=== PATIENT | male | born 1945 | race Caucasian/White ===

== ENCOUNTER 2016-08-16 10:15 | Inpatient (IN) | payer MEDICARE, OTHER ==
[~2016-08-16] VITALS: Ht 162.6 cm; Wt 108.8 kg
[2016-08-16] VITALS (9 sets, daily range): BP systolic 124–164; BP diastolic 63–96; PULSE 55–80; RESP 10–18; O2SAT 96–100
[~2016-08-16 10:15] MED LIST: ASCO-294 PO; ASPI325T32 PO; CHOL5000 PO; CLOB15CR2 TP; COQ 10; CREST10T PO; FISH1CAP15 PO; IRBE300T18 PO; LEVO200T6 PO; Lactated Ringer's 1,000 ML IV ONE; MULT-1018 PO; NITR0.4T SL; OMEP40CA36 PO; TELM80TA5 PO; Vancomycin Inj 1,500 MG in 0.9% Sodium Chloride 500 ML IV ONE; [UNRECOGNIZED DRUG - CODE] TP; fiber caps
[2016-08-16] MEDS ORDERED: Bupivacaine-MPF 0.25%/EPI 30 mL Inj INJ ONE (13:43)
[2016-08-16] MEDS: CeFAZolin Inj 2 GM in IV Premix 1 EACH IV SCH ×2 (13:50→17:15)
[2016-08-16] MEDS ORDERED: Lactated Ringer's 500 ML IV PRN (14:24)
[2016-08-16] MEDS ORDERED: Lactated Ringer's 1,000 ML IV SCH ×2 (14:24→17:25)
[2016-08-16] MEDS ORDERED: EPHEDrine Sulfate 50 mg/mL Inj IVPUSH PRN (14:25)
[2016-08-16] MEDS ORDERED: Atropine 0.4 mg/mL Inj IVPUSH PRN (14:25)
[2016-08-16] MEDS ORDERED: Phenylephrine 10,000 mCg/mL Inj IVPUSH PRN (14:25)
[2016-08-16] MEDS ORDERED: Ondansetron 2 mg/mL 2 mL Inj IVPUSH PRN (14:25)
[2016-08-16] MEDS ORDERED: MetoCLOpramide 5 mg/mL 2 mL Inj IVPUSH PRN (14:25)
[2016-08-16] MEDS ORDERED: Labetalol 5 mg/mL 4 mL Inj IV PRN (14:25)
--- NOTE | 2016-08-16 14:25 | PCM.HPANE ---
Patient Data Surgeon Admitting Provider: Attending Provider:David Perry MD Primary Care Physician:Joao Gardner MD Other Provider:[facility] Reason for Visit Right Hip Arthritis RIGHT HIP ARTHRITIS Ht/WT & BMI Height (Feet): 5 Height (Inches): 5 Weight (Kilograms): 109.95 Body Mass Index 40.00 Allergies Coded Allergies: camphor (Verified Allergy, Intermediate, hives, 08/16/16) menthol (Verified Allergy, Intermediate, hives, 08/16/16) methyl salicylate (Verified Allergy, Intermediate, hives, 08/16/16) naproxen (Verified Allergy, Intermediate, hives, 08/16/16) adhesive tape (Verified Allergy, Mild, red skin, 04/14/16) Past Anesthesia History Anesthesia History: Positive for:: Anesthesia Reactions (pt needed rescue anes with nasal airway during endoscopy here), Denies:: Malignant Hyperthermia Diabetes History Hx Diabetes?: No MRSA MRSA: No Medications Blood Thinner: Aspirin Hypertension Medication: Yes Home Meds Incl Beta Mohan: No Reported Medications Nitroglycerin SL (Nitrostat)0.4 Mg Tab.subl0.4 Mg SL Q5MIN PRN For Chest Pain # 1 BOTTLE 08/11/16 Cholecalciferol (Vitamin D3) (Vitamin D3)5,000 Unit Capsule5,000 Unit PO Q2DAY 08/11/16 Ascorbate Calcium (Vitamin C)500 Mg Adgsfb584 Mg PO DAILY 08/11/16 Omeprazole 40 Mg Capsule.dr40 Mg PO BID Ref 0 08/11/16 Multivitamin (Multi Vitamin Daily)1 Each Tablet1 Each PO DAILY 30 Days Ref 0 08/11/16 Levothyroxine 200 Mcg Rstnws187 Mcg PO DAILY Ref 0 08/11/16 Irbesartan 300 Mg Amgoua167 Mg PO DAILY 08/11/16 Fish Oil/Dha/Epa (Fish Oil 1,200 mg Fish Oil)1 Each Capsule1 Each PO TID 08/11/16 [fiber caps] 0.52gm No Conflict Check2 Capsule DAILY 08/11/16 Emollient Combination No.32 (Epiceram)90 Gm Eml.ext.rl90 Gm TP PRN skin irritation 08/11/16 [Coq 10] No Conflict Blwmt290 Mg BID 08/11/16 Clobetasol Propionate 15 Gm Cream..g.15 Gm TP PRN skin irritation 08/11/16 Aspirin 325 Mg Uazvya886 Mg PO DAILY #1 BOTTLE 08/11/16 Discontinued Reported Medications Telmisartan 80 Mg Qvvafj07 Mg PO DAILY 08/11/16 Rosuvastatin Calcium (Crestor)10 Mg Khbazj11 Mg PO DAILY 30 Days Ref 0 08/11/16 Telmisartan (Micardis)80 Mg Avwklg97 Mg PO DAILY 04/14/16 Rosuvastatin Calcium 10 Mg Yuvthq63 Mg PO DAILY 04/14/16 Omeprazole 40 Mg Capsule.dr40 Mg PO BID Ref 0 04/14/16 [place]-3 Fatty Acids/Fish Oil ([place] 3 1,000 mg Softgel)1 Each Capsule1 Each PO DAILY 04/14/16 Nitroglycerin SL 0.4 Mg Tab.subl0.4 Mg SL 04/14/16 Multivitamin (Multi Vitamin Daily)1 Each Tablet1 Each PO DAILY 30 Days Ref 0 04/14/16 Methylcellulose 1500CPS (Methylcellulose)2,500 Gm Powder2,500 Gm MC DAILY 04/14/16 Levothyroxine 200 Mcg Hdqerm246 Mcg PO DAILY Ref 0 04/14/16 Irbesartan 150 Mg Hpykjr421 Mg PO HS 04/14/16 Ubidecarenone (Coenzyme Q-10)50 Mg Ghhtysk279 Mg PO BID 04/14/16 Aspirin 325 Mg Ghtbtl405 Mg PO DAILY #1 BOTTLE 04/14/16 Ascorbate Calcium (Vitamin C)500 Mg Qlttaz926 Mg PO DAILY 04/14/16 History History of ENT Problems?: No HEENT History: Positive for:: Hearing Problem Denture Type: None Teeth Condition: Within Normal Limits Missing Teeth (implants) Hx of Heart Problems?: Yes Cardiovascular History: Positive for:: Cardiac Surgery (past hx of cardiac cath with stent placments 1996) Hypertension Denies:: Valvular Heart Disease (ef on stress test 71% 2014) Hx of Respiratory Problem?: Yes Respiratory History: Positive for:: Use of C-PAP Machine Denies:: Asthma COPD Emphysema Oxygen Administration Use of Inhalers / NEBS Hx Neurologic Problems?: No Neurological History: Denies:: CVA Multiple Sclerosis Parkinson's Disease Seizures Hx of GI Problems?: No Hx of Problems?: No Hx Musculoskeletal Problems?: Yes Musculoskeletal History: Positive for:: Musculoskeletal Trauma (right hip current admission problem) Denies:: Joint Replacement Psycho Social History: Denies:: Anxiety Hx Depression Hx Surgeries?: Yes (rotator cuff repair) Hx Any Other Health Problems?: Yes Other History: Denies:: Cancer Thyroid Disease Hx Diabetes: No Hx Alcohol Use: YesHx Substance Use: No Smoking Status: Never Smoker Have You Smoked inLast 12 mo: No Stop/Bang S-Snoring: Do You Snore Loudly: No T-Tired: feel tired, fatigued: No O-Obsered: Observed not breath: No P-Blood Pressure: treated: Yes B- Body Mass Index > 35 kg/m2: Yes A- Age over 50: Yes N- Neck Large Circumference: Yes G- Gender Male: Yes JESSE Total Score: 5 Risk Assessment Category Category 1A: Patient has history of documented sleep apnea, and HAS NOT received any narcotic, sedative or anesthesia administration during this stay. Category 1B: Patient has history of documented sleep apnea, and HAS received any narcotic , sedative or anesthesia administration during this stay Category 2: Patient has SUSPECTED Obstructive Sleep Apnea, and HAS received any narcotic , sedative or anesthesia administration during this stay. Category 3: Patient has SUSPECTED Obstructive Sleep Apnea and HAS NOT received narcotic, sedative or anesthesia administration during this stay. Category 4: Outpatient in Procedural Areas with known sleep apnea or who screen positive for High Risk via the STOP/BANG questionnaire. Exam Exam Vital Signs Vital Signs Date Time Temp Pulse Resp B/P Pulse Ox O2 Delivery O2 Flow Rate FiO2 08/16/16 10:42 36.3 55 16 152/81 97 General Appearance: Alert, Oriented X3, Cooperative, No Acute Distress HEENT/AIRWAY: MP 3, Neck Movement (FROM, large neck circumference), Mouth Opening (2 FBMO) Lungs: Clear to Auscultation, Normal Air Movement Heart: Exam Unremarkable, Regular Rate/Rhythm, No Murmurs/Rubs/Gallops Meds/Labs/Diagnostics Admission Meds Current Medications Lactated Ringer's (Lr) 1,000 ml @ 120 mls/hr Q8H20M ONCE IV Last administered on 08/16/16t 10:47; Start 08/16/16 at 05:00; Stop 08/16/16 at 13:19 Plan Impression Patient chart reviewed, patient interviewed and anesthestic plan with risks, benefits, and alternatives discussed, and informed consent obtained. NPO per Anesth. Guidelines: Yes ASA Physical Status: ASA3 Severe Disease (BMI 41) Anesthetic Plan: GA, SAB (Will attempt SAB, if unsuccessful then I will perform a GETA with glidescope) Bene/Risks/Altern/Consents: Yes HP Complete Prior to Induction: Yes Keenan Bergeron MD August 16, 2016 11:11
--- NOTE | 2016-08-16 16:21 | PCM.ANEP1 ---
Post Anesthesia Phase 1 PACU Phase 1 Assessment Vital Signs Vital Signs Date Time Temp Pulse Resp B/P Pulse Ox O2 Delivery O2 Flow Rate FiO2 08/16/16 16:13 36.9 67 12 158/71 100 Simple Mask 8 08/16/16 11:12 CPAP/BIPAP 08/16/16 10:42 36.3 55 16 152/81 97 Anesthetic Administered: GA Level of Alertness: Awake, talking NERI's with Equal Strength: Yes Pain: No Nausea or Vomiting: No Cardiovascular Function and Hy: Yes Oxygen Delivery: Simple Mask Lungs: Clear to Auscultation, Normal Air Movement Dermatome Level: Full Sensation Complications: No Follow up Care: No Keenan Bergeron MD August 16, 2016 16:21
[2016-08-16] MEDS: HYDROmorphone 1 mg/mL Inj IVPUSH PRN ×4 (16:28→16:53)
[2016-08-16] MEDS: fentaNYL-PF 50 mCg/mL 2 mL Inj IVPUSH PRN ×4 (16:28→16:53)
--- NOTE | 2016-08-16 16:38 | DRSVH ---
PROCEDURE: X-RAY PELVIS, ONE OR TWO VIEWS ([id number]) INDICATIONS: POST OP PROSTHETIC TECHNIQUE: 2 view(s) of the pelvis acquired. COMPARISON: None. FINDINGS: Bones: No fractures or dislocations. No suspicious bony lesions. Right hip arthroplasty. Soft tissues: Visualized bowel gas pattern is normal. No suspicious soft tissue calcifications. IMPRESSION: Expected appearance following right hip arthroplasty. Dictated by: Venancio Laureano M.D. on 08/16/2016 at 16:37 Approved by: Venancio Laureano M.D. on 08/16/2016 at 16:37
[2016-08-16 17:02] LABS: APPEARANCE,URINE CLEAR (CLEAR,HAZY); COLOR,URINE STRAW (YELLOW); OCCULT BLOOD,URINE NEGATIVE (NEGATIVE); UROBILINOGEN,URINE NORMAL (NORMAL)
--- NOTE | 2016-08-16 17:10 | NUR ---
Admission Pt admitted to room 1005 from OR. Brought to room on bed accompanied by Tavo, nurse and tech. Incision dressing C/D/I, pulses strong. Awaiting pharmacy for pain medications orders. Oriented to room and floor, call light within reach. Spouse at bedside.
[2016-08-16] MEDS ORDERED: MetoCLOpramide 5 mg/mL 2 mL Inj ONE (17:16)
[2016-08-16] MEDS ORDERED: HYDROmorphone 2 mg/mL Inj ONE (17:16)
[2016-08-16] MEDS ORDERED: fentaNYL-PF 50 mCg/mL 2 mL Inj ONE (17:16)
[2016-08-16] MEDS ORDERED: Ondansetron 2 mg/mL 2 mL Inj ONE (17:16)
[2016-08-16] MEDS ORDERED: Propofol 10,000 mCg/mL 20 mL Inj ONE (17:16)
[2016-08-16] MEDS ORDERED: Ondansetron 2 mg/mL 2 mL Inj IV PRN (17:25)
[2016-08-16] MEDS ORDERED: MetoCLOpramide 5 mg/mL 2 mL Inj IV PRN (17:25)
[2016-08-16] MEDS ORDERED: Sodium Biphos-Phos 133 mL Enema RECTAL PRN (17:25)
[2016-08-16] MEDS ORDERED: Alum-Mag Hydrox-Simeth 30 mL Suspension PO PRN (17:25)
[2016-08-16] MEDS ORDERED: Magnesium Hydroxide 10 mL Oral Concentration PO PRN (17:25)
[2016-08-16] MEDS ORDERED: diphenhydrAMINE 25 mg Capsule PO PRN (17:25)
[2016-08-16] MEDS ORDERED: Ondansetron 8 mg ODT Tablet PO PRN (17:25)
[2016-08-16] MEDS: HYDROcodone-APAP 5-325 mg Tablet PO PRN ×2 (17:47→18:23)
[2016-08-16] MEDS ORDERED: Clobetasol Prop 0.05% 15 Gm Ointment TOPICAL PRN (19:30)
[2016-08-16] MEDS: Pantoprazole 40 mg ER24 Tablet PO SCH (21:55)
[2016-08-16] MEDS: hydrOXYzine Pamoate 25 mg Capsule PO PRN (21:56)
[2016-08-16] MEDS: oxyCODONE-Acetamin 5-325 mg Tablet PO PRN (21:56)
[2016-08-16] MEDS: CeFAZolin 2 Gm/50 mL D5W IV Premix IV SCH ×2 (22:00)
[2016-08-16] MEDS ORDERED: Vancomycin Inj 1,500 MG in 0.9% Sodium Chloride 500 ML IV ONE (23:00)
[2016-08-17] MEDS: Sodium Chloride LOK Flush 10 mL Syringe IV SCH ×3 (00:30→16:19)
[2016-08-17] MEDS: oxyCODONE-Acetamin 5-325 mg Tablet PO PRN ×3 (01:42→08:13)
[2016-08-17] MEDS: hydrOXYzine Pamoate 25 mg Capsule PO PRN ×3 (05:15→16:23)
[2016-08-17] MEDS: CeFAZolin 2 Gm/50 mL D5W IV Premix IV SCH ×2 (05:19)
[2016-08-17] MEDS: Pantoprazole 40 mg ER24 Tablet PO SCH ×2 (05:26→20:17)
[2016-08-17 05:38] VITALS: BP 137/83; PULSE 66; RESP 17; O2SAT 98
[2016-08-17 05:40] LABS: BASOPHILS % (AUTO) 0.1 % (0-3); EOSINOPHILS % (AUTO) 0.3 % (0-5); Mean Corpuscular Hemoglobin 31.7 pg (27.0-35.0); Mean Corpuscular Volume 96.4 fL (81-100); NEUTROPHILS % (AUTO) 74.7 % (40-74); Platelet Count 246 bil/L (150-400)
--- NOTE | 2016-08-17 06:07 | NUR ---
Pt AOx3, pain increasing at start of shift despite 1x norco admin. Given Morphine IV once for breakthrough pain and subsequently treated with prn percocet and vistaril. Pt refuses astorvastatin at HS. Diet advanced as tolerated, broth and ice cream well tolerated this shift. No CP or SOB, pulses equal in BLE, SCD on L leg only. Dressing CDI and ice to Hip. Pt on CPOX and his own cpap with 3L o2. Banks patent and draining to urine. Care continues
[2016-08-17 07:17] VITALS: PULSE 69; O2SAT 95
--- NOTE | 2016-08-17 07:22 | OP ---
[address] [address] OPERATIVE REPORT PATIENT: MORELIA MARTINEZ : 1945 MR#: [id number] ADMIT: 08/16/2016 JOB ID: [id number] DATE OF SURGERY: 08/16/2016 PREOPERATIVE DIAGNOSIS(ES): Severe arthritis, right hip. POSTOPERATIVE DIAGNOSIS(ES): Severe arthritis, right hip. PROCEDURE: Total hip replacement. SURGEON: David Perry MD. POCKET MAKER: Kay Good PA-C. COMPLICATIONS: None. INDICATIONS: This gentleman has had severe progressive disability associated with his hip. He elects for total hip replacement. He understands and accepts the potential for risks and complications, which include but are not limited to infection, thromboembolic, neurovascular events, as well as a potential for leg length inequality, dislocation and implant failure. Understanding these, he wishes to proceed. PROCEDURE IN DETAIL: The patient was prepped and draped in usual sterile fashion. A posterolateral approach was made to the hip. Dissection was carried down. External rotators were tagged and released. Capsule was T'd, tagged, and released. Hip was dislocated. A short femoral neck cut was made according to templating. The femoral head was removed. The acetabulum was cleaned of soft tissues and progressively reamed to a 55 outer bearing size and outer bearing cup was impacted securely into place. Following this, a box osteotome, straight T-handled reamer was utilized for progressive broaching and a size 11 implant was chosen using the taper lock system. Trial reduction was performed and a -6 neck length with a high offset version hip utilizing the dual mobility cup was chosen which produced the best balance of soft tissue tension and leg lengths. Wounds were irrigated with sterile irrigant. The final stem was replaced and repeat trial reductions in this construct was chosen. The construct was assembled and the hip was reduced. The hip was then irrigated with dilute Betadine solution according to protocol. The external rotators were then repaired. Deep capsule was closed with #2 Quill suture. Leg lengths had been measured preop with a pin in the pelvis marked to the trochanter and then using the down leg technique appeared to be equal intraoperatively. Final closure with 2-0 Vicryl, 3-0, 4-0 intracuticular stitch and Steri-Strips. The patient tolerated the procedure well. There were no complications.
--- NOTE | 2016-08-17 09:45 | PCM.PNORTH ---
Subjective Date of Service: August 17, 2016 Visit Information: Reason for Visit Right Hip Arthritis Surgery/Surgery Date R ZAK 08/16/16 Post-Op Day # 1 Date of Admission: August 16, 2016 at 17:15 Hospital Day # Subjective Patient states he is having pain that has not been below 5/10. He states he is very worried about going home without his pain controlled. He is also concerned about getting up to use the bathroom as he has to urinate frequently. He may need a commode at home. Postop General: No Shortness of Breath, No Chest Pain Pain Management: PO Objective Exam Objective Sitting up in bed Vital Signs and I/O Vital Sign - Last Date Time Temp Pulse Resp B/P Pulse Ox O2 Delivery O2 Flow Rate FiO2 08/17/16 07:17 69 95 Room Air 08/17/16 05:38 36.4 17 137/83 08/16/16 19:25 2.00 Intake and Output 08/16/16 08/16/16 08/17/16 Cumulative From/Thru 14:59 22:59 06:59 08/11/16 15:44 - 08/17/16 05:38 Intake Total 1460 ml 500 ml 1600 ml 3560 ml Output Total 730 ml 800 ml 1530 ml Balance 1460 ml -230 ml 800 ml 2030 ml Intake Oral 400 ml 1600 ml 2000 ml IV Total 1460 ml 100 ml 1560 ml Output Urine Total 330 ml 800 ml 1130 ml Estimated Blood Loss 400 ml 400 ml # Bowel Movements 0 0 0 Lab & Micro Results Laboratory Tests Test 08/16/16 16:47 08/17/16 05:05 Urine Color Straw (YELLOW) Urine Appearance Clear (CLEAR,HAZY) Urine pH 7.0 (5.0-8.0) Urine Specific [place] 1.015 (1.003-1.035) Urine Protein Negativemg/dL (NEG,TRACE) Urine Glucose (UA) Negativemg/dL (NEGATIVE) Urine Ketones Negativemg/dL (NEGATIVE) Urine Occult Blood Negative (NEGATIVE) Urine Nitrite Negative (NEGATIVE) Urine Bilirubin Negative (NEGATIVE) Urine Urobilinogen Normalmg/dL (NORMAL) Urine Leukocyte Esterase Negative (NEGATIVE) Urine RBC 0-2/hpf (0-2) Urine WBC 0-5/hpf (0-5) Urine Epithelial Cells None/hpf (NONE-MOD) Urine Crystals None seen (NONE SEEN) Urine Bacteria Few/hpf (NONE-FEW) Urine Hyaline Casts None/lpf (NONE) Urine Granular Casts None seen (NONE SEEN) Urine Waxy Casts None seen (NONE SEEN) Urine Red Blood Cell Casts None seen (NONE SEEN) Urine White Blood Cell Casts None seen (NONE SEEN) Urine Mucus None seen (None Seen) Urine Trichomonas None seen (NONE SEEN) Urine Yeast None (NONE SEEN) Urinalysis Comment None Urine Culture Reflexed Not indicated White Blood Count 11.8th/mm3 (3.8-10.1) Red Blood Count 3.63mil/mm3 (4.40-5.80) Hemoglobin 11.5g/dL (13.8-17.2) Hematocrit 35.0% (41.0-50.0) Mean Corpuscular Volume 96.4fL (81-100) Mean Corpuscular Hemoglobin 31.7pg (27.0-35.0) Mean Corpuscular Hemoglobin Concent 32.9% (32.0-37.0) Red Cell Distribution Width 13.5% (12.3-15.4) Platelet Count 246bil/L (150-400) Neutrophils (%) (Auto) 74.7% (40-74) Lymphocytes (%) (Auto) 10.4% (14-46) Monocytes (%) (Auto) 14.0% (4-12) Eosinophils (%) (Auto) 0.3% (0-5) Basophils (%) (Auto) 0.1% (0-3) Result Diagram: 08/17/16 0505 General Appearance: Alert, Oriented X3, Cooperative, No Acute Distress Extremities: Distal Pulses Palpable, No Compartment Syndrom Noted, Thigh & Calf Soft/Nontender (Calf soft, nontender), Tenderness/Swelling Noted (Thigh swollen and tender) Postop Sensory Motor: Distal Motor Intact, Movement in Toes, Distal Sensation Intact, NVI Distally SURGICAL WOUND : Wound Location/Description Perioperative dressing c/d/i Incision General Appearance: No Direct Observation Dressing & Drainage Status: Intact Catheters: Urethral 2 Way Banks (Remove today) Assessment & Plan Impression POD#1 Right total hip arthroplasty Problems: Plan Weightbearing: Weightbearing as tolerated with a front wheeled walker DVT prophylaxis: Lovenox 40mg SQ QD x2 weeks followed by aspirin 81mg BID x4 weeks for a total of 6 weeks of DVT prophy Physical therapy for transfers, progressive ambulation, strengthening Wound care: Perioperative dressing will be changed to an island dressing tomorrow. Patient has a sensitivity to tape and should be monitored. Analgesia: Continue oral pain medications. I have also started patient on IV acetaminophen q6 x4 doses for a total of 24 hours of coverage. Discharge plan: Discharge home in 1-2 days. Start outpatient physical therapy next week. Follow-up plan: In 2 weeks at [facility] with PA for wound check and at [address] Perry with x-rays Kay Good PA-C August 17, 2016 09:45
[2016-08-17] MEDS: Acetaminophen IV 1,000 mg IV SCH ×3 (10:23→22:41)
[2016-08-17 11:55] VITALS: BP 116/72; PULSE 82; RESP 17; O2SAT 94
--- NOTE | 2016-08-17 11:56 | NUR ---
Evaluation completed. Please go to "Notes" then click on "Assessments and Notes" (bottom left corner of screen). Then select appropriate discipline tab on top of screen.
--- NOTE | 2016-08-17 14:48 | NUR ---
Social Work: Initial Assessment D: Pt is a 71 y/o male admitted for right hip arthritis per H&P. Pt is post op day 1. SW met with pt and Clara at bedside to conduct initial assessment. Pt was alert and oriented x3. Pt's insurance is Medicare and [facility] [employer] [facility] [employer]. Pt's PCP is Joao Gardner MD. Pt has not HH or SNF history. Pt has not VA or LTC insurance. Pt has completed DPOA/advanced directive and will bring a copy to the hospital tomorrow. Pt's primary contact is Clara ([phone]). Pt lives with in [place] in a single-story home with 2 exterior steps and 0 internal steps. Pt ambulates independent at baseline but will use a FWW for rehabilitation. Pt is independent of ADLs. Pt drives. Pt's Clara confirmed she will drive pt home via POV at time of discharge. PT recommends HH or outpatient PT for rehabilitation. SW discussed possibility of HH vs outpatient PT. Pt confirmed he has outpatient PT scheduled and his can provide transport to appointments. Pt stated that it is a little early to make final discharge decisions but he is not opposed to HH services if that is the ultimate recommendation. Pt would be okay with HH but prefers outpatient PT. SW confirmed to follow-up with pt as he advances with PT at the hospital. As for now, the plan is for pt to go home via POV with and start outpatient PT. A: Pt who ambulates independent at baseline but will use FWW for rehabilitation. Pt who will benefit from HH or outpatient PT. P: As for now, the plan is for pt to go home via POV with and begin outpatient PT. Pt will consider HH if necessary. SW to follow-up with pt to R/O HH after pt has been reevaluated by PT. KESHA Munoz Addendum: 08/17/16 at 1502 by DAVID OLVERA SS Amended: Links added.
--- NOTE | 2016-08-17 15:45 | NUR ---
Activity Pt ambulated to BSC and murray pulled at the same time. Tolerated okay.
[2016-08-17 19:40] VITALS: BP 130/73; PULSE 75; RESP 18; O2SAT 96
[2016-08-18] MEDS: Sodium Chloride LOK Flush 10 mL Syringe IV SCH ×3 (00:30→16:24)
--- NOTE | 2016-08-18 04:27 | NUR ---
PAIN/ACTIVITY: When pt. is at rest report no pain. Has been up to void in the urinal about 3 times tonight, able to stand at the side of the bed with one person SBA. C/o pain with activity, rated his pain at 7/10, given IV Tylenol, helpful. On going care.
[2016-08-18] MEDS: hydrOXYzine Pamoate 25 mg Capsule PO PRN ×3 (04:37→16:25)
[2016-08-18 05:33] VITALS: BP 136/74; PULSE 79; RESP 18; O2SAT 99
[2016-08-18] MEDS: Acetaminophen IV 1,000 mg IV SCH (06:35)
[2016-08-18] MEDS: Pantoprazole 40 mg ER24 Tablet PO SCH ×2 (06:39→19:44)
[2016-08-18 09:39] VITALS: BP 127/67; PULSE 79; RESP 17; O2SAT 95
--- NOTE | 2016-08-18 09:47 | NUR ---
Evaluation completed. Please go to "Notes" then click on "Assessments and Notes" (bottom left corner of screen). Then select appropriate discipline tab on top of screen.
--- NOTE | 2016-08-18 10:33 | PCM.PNORTH ---
Subjective Date of Service: August 18, 2016 Visit Information: Reason for Visit Right Hip Arthritis Surgery/Surgery Date R ZAK 08/16/16 Post-Op Day # Date of Admission: August 16, 2016 at 17:15 Hospital Day # Subjective Patient complains of incisional pain. He did quite well with occupational therapy and therapist felt patient was ready for home. Patient is nervous about going home. Postop General: No Shortness of Breath, No Chest Pain Pain Management: PO Objective Exam Objective Patient is seen in bed Vital Signs and I/O Vital Sign - Last Date Time Temp Pulse Resp B/P Pulse Ox O2 Delivery O2 Flow Rate FiO2 08/18/16 09:39 37.1 79 17 127/67 95 Room Air 08/16/16 19:25 2.00 Intake and Output 08/17/16 08/17/16 08/18/16 Cumulative From/Thru 15:00 23:00 07:00 08/11/16 15:44 - 08/18/16 05:33 Intake Total 1312 ml 1600 ml 2000 ml 8472 ml Output Total 700 ml 1300 ml 3530 ml Balance 1312 ml 900 ml 700 ml 4942 ml Intake Oral 1600 ml 2000 ml 5600 ml IV Total 1312 ml 2872 ml Output Urine Total 700 ml 1300 ml 3130 ml Estimated Blood Loss 400 ml # Bowel Movements 0 0 Result Diagram: 08/17/16 0505 General Appearance: Alert, Oriented X3, Cooperative, No Acute Distress Extremities: Distal Pulses Palpable, No Compartment Syndrom Noted, Thigh & Calf Soft/Nontender Postop Sensory Motor: Distal Motor Intact, NVI Distally SURGICAL WOUND : Wound Location/Description Surgical dressing is removed. There were small blisters at the most proximal edge of the adhesive on the back and on the posterior mid thigh. Surgical wound is clean and dry. Steri-Strips are intact. The surgical wound was cleansed with hydrogen peroxide, covered with Silverlon pad and Island dressing. The blistered sites were dressed with a small piece of Adaptic, 2 x 2 gauze and Tegaderm. Dressing & Drainage Status: Changed Activity: Activity per PT, Ambulate with PT Catheters: None Assessment & Plan Impression POD #2 right total hip arthroplasty Problems: Plan Weightbearing: Weightbearing as tolerated with a front wheeled walker DVT prophylaxis: Lovenox 40mg SQ QD x2 weeks followed by aspirin 81mg BID x4 weeks for a total of 6 weeks Physical therapy for transfers, progressive ambulation, strengthening OT: Patient did well with OT this morning Wound care: Dressing change today to silver lawn and island dressing. There are 2 blistered areas present on the back and on the mid thigh. The blistered areas were dressed with Adaptic, 2 x 2 gauze and Tegaderm Analgesia: Continue oral pain medications. Discharge plan: Patient did well with OT today. If he does well with physical therapy he may be discharged home today. Outpatient physical therapy is scheduled to start next week. Follow-up plan: In 2 weeks at [facility] with RONDA for wound check and at [address] Perry with x-rays Pain Management: Percocet, Vistaril VTE Prophylaxis: Sub-Q Enoxaparin Resuscitation Status: CPR: Attempt Resuscitation LoveladyArlene harmon PA-C August 18, 2016 10:33
--- NOTE | 2016-08-18 10:34 | PCM.DIORTH ---
Ortho Discharge Instruction Date of Service: August 18, 2016 Dates of Hospitalization Date of Hospital Admission August 16, 2016 at 17:15 Providers Admitting Physician: David Perry MD Primary Care Physician: Joao Gardner MD Attending Physician: David Perry MD Diet Discharge Diet: No restrictions Activity Discharge Activity-General: Balance rest and activity Right Lower Extremity: Weight Bearing as tolerated Discharge Assist Device: Front Wheeled Walker Dressing and Incisional Care Discharge Dressing Care: Keep dressing clean, dry & intact Discharge Hygiene: DO NOT soak incision under water, NO bathtub, hot tub or whirlpool Additional Instructions Discharge Instructions Weightbearing: Weightbearing as tolerated with a front wheeled walker DVT prophylaxis: Lovenox 40mg SQ QD x10 more days followed by aspirin 81mg BID x4 weeks for a total of 6 weeks Wound care: change dressing in 3-4 days with Silverlon pad and island dressing. There are 2 blistered areas present on the back and on the mid thigh. The blistered areas were dressed with Adaptic, 2 x 2 gauze and Tegaderm. Leave in place for 1 week. Analgesia: Percocet Do not take NSAIDS while using Lovenox Hip precaution positions to prevent dislocation: No flexing forward past 90, no crossing the legs at the knee, no active abduction for 6 weeks after surgery Outpatient physical therapy is scheduled to start next week. Follow Up Plan Follow Up Plan Follow-up plan: In [address] [facility] with RONDA for wound check and at [address] Perry with x-rays Call your provider for: Fever, Chills, Shortness of breath, Vomitting, Drainage at incision, Wound redness Arlene Guardado PA-C August 18, 2016 10:34
[2016-08-18] MEDS ORDERED: OXYC1TAB24 PO (13:41)
[2016-08-18] MEDS ORDERED: HYDR-3797 PO (13:41)
[2016-08-18] MEDS ORDERED: DOCU-41 PO (13:41)
[2016-08-18] MEDS ORDERED: ENOX40DI8 SUBQ (13:41)
--- NOTE | 2016-08-18 14:15 | NUR ---
Social Work-readiness for discharge: Data:EMR Reviewed. Pt is on day 2 of hospitalization for right hip per H&P. Pt is not medically stable for discharge anticipate tomorrow. PT has seen pt and recommended home with outpt vs HH and OT has cleared for home. SW followed up with pt and . SW confirmed with UR and PA that pt will stay this evening and discharge tomorrow, SW provided update. SW discussed recommendation of HH Vs outpt and pt and would prefer to do outpt PT. They already have this set up and would like to use this service. Pt's to provide transport home. SW will continue to follow. Assessment:Pt who would benefit from outpt PT. Plan:Pt to discharge home tomorrow via POV. Pt and declining HH already set up with outpt PT services. SW will continue to follow. KESHA Tuttle
[2016-08-18 14:35] VITALS: BP 131/73; PULSE 73; RESP 18; O2SAT 96
--- NOTE | 2016-08-18 16:23 | NUR ---
Pain Rated as 3-6/10 depending on activity level. 10mg Oxycodone and 25 mg Vistaril given prn. Ice packs to hip. Pt states this is effective. Has been working with physical therapy.
[2016-08-18 19:50] VITALS: BP 152/71; PULSE 79; RESP 17; O2SAT 96
[2016-08-19] MEDS: Sodium Chloride LOK Flush 10 mL Syringe IV SCH ×2 (00:30→09:26)
[2016-08-19] MEDS: hydrOXYzine Pamoate 25 mg Capsule PO PRN ×2 (03:18→09:27)
[2016-08-19] MEDS: oxyCODONE-Acetamin 5-325 mg Tablet PO PRN ×4 (03:19→14:32)
--- NOTE | 2016-08-19 03:34 | NUR ---
CONSTIPATION/PAIN: Pt. has been worried as he has not have a BM since admit. Given stool softeners as scheduled and prn including lots of prune juice. Refused Dulcolax suppository. Has been up to the bathroom several times tonight only passing flatus. This am he reported he finally had a small BM tonight. Medicated with Percocet and Vistaril for hip pain. Helpful. On going care.
[2016-08-19 06:02] VITALS: BP 124/80; PULSE 64; RESP 18; O2SAT 97
[2016-08-19] MEDS: Pantoprazole 40 mg ER24 Tablet PO SCH (06:24)
[2016-08-19 08:05] VITALS: BP 114/74; PULSE 67; RESP 18; O2SAT 95
[2016-08-19 13:04] VITALS: BP 112/71; PULSE 70; RESP 18; O2SAT 96
--- NOTE | 2016-08-19 13:50 | PCM.PNORTH ---
Subjective Date of Service: August 19, 2016 Visit Information: Reason for Visit Right Hip Arthritis Surgery/Surgery Date R ZAK 08/16/16 Post-Op Day # 3 Date of Admission: August 16, 2016 at 17:15 Hospital Day # Subjective Patient states he feels much better today. He did well with therapy this morning and feels that he is ready to go home. Postop General: No Shortness of Breath, No Chest Pain Pain Management: PO Objective Exam Objective Patient is seen sitting up in bed Vital Signs and I/O Vital Sign - Last Date Time Temp Pulse Resp B/P Pulse Ox O2 Delivery O2 Flow Rate FiO2 08/19/16 13:04 36.4 70 18 112/71 96 Room Air 08/16/16 19:25 2.00 Intake and Output 08/18/16 08/18/16 08/19/16 Cumulative From/Thru 15:00 23:00 07:00 08/11/16 15:44 - 08/19/16 06:02 Intake Total 1550 ml 640 ml 14728 ml Output Total 750 ml 950 ml 5230 ml Balance 800 ml -310 ml 5432 ml Intake Oral 1550 ml 640 ml 7790 ml IV Total 2872 ml Output Urine Total 750 ml 950 ml 4830 ml Estimated Blood Loss 400 ml # Bowel Movements 0 0 0 Result Diagram: 08/17/16 0505 General Appearance: Alert, Oriented X3, Cooperative Extremities: Distal Pulses Palpable, No Compartment Syndrom Noted, Thigh & Calf Soft/Nontender Postop Sensory Motor: Distal Motor Intact, NVI Distally SURGICAL WOUND : Dressing & Drainage Status: Intact (clean and dry) Activity: Activity per PT, Ambulate with PT Catheters: None Assessment & Plan Impression POD #3 Status post right total hip arthroplasty Problems: Plan Weightbearing: Weightbearing as tolerated with a front wheeled walker DVT prophylaxis: Lovenox 40mg SQ QD x2 weeks followed by aspirin 81mg BID x4 weeks for a total of 6 weeks Physical therapy for transfers, progressive ambulation, strengthening Wound care: Leave dressing in place for 3 days, then change. There are 2 blistered areas present on the back and on the mid thigh. The blistered areas were dressed with Adaptic, 2 x 2 gauze and Tegaderm Analgesia: Continue oral pain medications. Discharge plan: discharge home today. Outpatient physical therapy is scheduled to start next week on Tuesday. Follow-up plan: In 2 weeks at [facility] with RONDA for wound check and at [address] Perry with x-rays Pain Management: Percocet VTE Prophylaxis: Sub-Q Enoxaparin, SCDs Resuscitation Status: CPR: Attempt Resuscitation [place] PA-C August 19, 2016 13:50
--- NOTE | 2016-08-19 13:51 | PCM.DC.ORT ---
Discharge Summary Date of Service: August 19, 2016 Date of Hospital Admission: August 16, 2016 at 17:15 Date of Surgery: August 16, 2016 Date of Discharge: August 19, 2016 Reason for Hospitalization: Right hip arthritis Procedures Performed: Right total hip arthroplasty Hospital Course: The patient was admitted to the hospital on 08/16/2016 and underwent the above procedure. Antibiotic prophylaxis consisting of Ancef and vancomycin. The surgeon was Dr. Perry. A Banks was placed perioperatively. Patient tolerated the procedure well and was transferred to recovery room in stable condition. Banks was discontinued on postop day 1. Patient had physical therapy to work on ambulation and transfers. Weightbearing as tolerated with walker. Pain was managed with Dilaudid, Percocet, Vistaril, Toradol. DVT prophylaxis: Lovenox 40 mg SQ. Patient progressed well with physical therapy and on POD-3 was discharged home. Follow-up: at [facility] 2 weeks postop for wound check and at [address] Perry with x-ray Diagnosis at Time of Discharge Status post right total hip arthroplasty Problems: Disposition: Discharged home in stable condition Additional Information Follow-up plan: In 2 weeks at [facility] with PA for wound check and at [address] Perry with x-rays Discharge Instructions: Weightbearing: Weightbearing as tolerated with a front wheeled walker DVT prophylaxis: Lovenox 40mg SQ QD x2 weeks followed by aspirin 81mg BID x4 weeks for a total of 6 weeks Next week, start outpatient Physical therapy for transfers, progressive ambulation, strengthening Wound care: Leave dressing in place for 3 days, then change. There are 2 blistered areas present on the back and on the mid thigh. The blistered areas were dressed with Adaptic, 2 x 2 gauze and Tegaderm Analgesia: Percocet Hip precaution positions to prevent dislocation: No flexing forward past 90, no crossing the legs at the knee, no active abduction for 6 weeks after surgery ([Coq 10]) 100 MG BID ([fiber caps]) 0.52gm 2 CAPSULE DAILY Ascorbate Calcium (Vitamin C) 500 Mg Tablet 500 MG PO DAILY Cholecalciferol (Vitamin D3) (Vitamin D3) 5,000 Unit Capsule 5,000 UNIT PO Q2DAY Clobetasol Propionate (Clobetasol Propionate) 15 Gm Cream..g. 15 GM TP PRN skin irritation Docusate Sodium (Colace) 100 Mg Capsule 100 MG PO BID PRN PRN For Constipation Emollient Combination No.32 (Epiceram) 90 Gm Eml.ext.rl 90 GM TP PRN skin irritation Enoxaparin Sodium (Enoxaparin Sodium) 40 Mg/0.4 Ml Syringe 40 MG SUBQ Q24H Hydroxyzine Pamoate (HydrOXYzine Pamoate) 25 Mg Capsule 25-50 MG PO Q4H PRN PRN For Restlessness Irbesartan (Irbesartan) 300 Mg Tablet 150 MG PO DAILY Levothyroxine (Levothyroxine) 200 Mcg Tablet 200 MCG PO DAILY Multivitamin (Multi Vitamin Daily) 1 Each Tablet 1 EACH PO DAILY Nitroglycerin SL (Nitrostat) 0.4 Mg Tab.subl 0.4 MG SL Q5MIN PRN PRN For Chest Pain Omeprazole (Omeprazole) 40 Mg Capsule.dr 40 MG PO BID oxyCODONE-Acetaminophen 5-325 mg (oxyCODONE-Acetaminophen 5-325 mg) 1 Each Tablet 1-2 TAB PO Q4H PRN PRN For Severe Pain Arlene Guardado PA-C August 19, 2016 13:51
--- NOTE | 2016-08-19 15:35 | NUR ---
Discharge To home with via private vehicle at 15:20. IV discontinued intact. Pt and express understanding of all discharge instructions and carenotes, including medications/Lovenox and followup. Rx given. All belongings sent with pt.
--- NOTE | 2016-08-19 15:48 | NUR ---
Social Work-readiness for discharge: Data:EMR Reviewed. Pt is on day 3 of hospitalization for right hip per H&P. Pt to discharge today. Pt to discharge home with to transport POV and outpt PT. No discharge needs. Assessment: Pt who would benefit from outpt PT. Plan: Pt to discharge home tomorrow via POV and outpt PT services. No discharge needs. KESHA Regalado
== END 2016-08-19 15:19 | disposition home or self-care (01) | DRG 470 ==
LOC: SAS 10:15 → OSC 17:15
PROVIDERS: ADMIT Orthopaedic Surgery; ATTEND Orthopaedic Surgery
PROC: 0SR90JA Replacement of Right Hip Joint with Synthetic Substitute, Uncemented, Open Approach (ICD-10-PCS; principal; 2016-08-16 12:30)
DX: M16.11 Unilateral primary osteoarthritis, right hip (principal); I10 Essential (primary) hypertension